=== PATIENT | female | born 1995 | race Caucasian/White ===

== ENCOUNTER 2019-02-26 12:46 | Emergency (ER) | payer BC ==
[~2019-02-26] VITALS: Ht 160 cm; Wt 61.2 kg
[2019-02-26 12:52] VITALS: BP 116/70
--- NOTE | 2019-02-26 13:52 | PHYS DOC ---
Past Medical History Past Medical History: Other Additional Past Medical Histor: CONCUSSION X 2 (NICK SOL APRN) Past Surgical History: Other Additional Past Surgical Histo: ORAL (NICK SOL APRN) Alcohol Use: Occasionally Drug Use: None (NICK SOL APRN) Adult General Chief Complaint Chief Complaint: HEADACHE HPI HPI Patient is a 23 year old female who presents to the emergency department with complaints of headache in both sides of her forehead and difficulty concentrating after suffering a fall while dancing 2 days ago. Patient denies any loss of consciousness, nausea, vomiting, neck pain, back pain, vision changes, photosensitivity, or ringing in the ears since the event happened. She states that she feels like she did when she was previously diagnosed with a concussion. Patient states that she landed onto her right hip, she denies ever hitting her head on the ground. She denies any pain of her right hip or decreased range of motion. Currently, her discomfort is a 4 out of 10 on the pain scale, there are no alleviating or exacerbating factors. She denies any nasal congestion, sinus pressure, sneezing, or itching/watering eyes. (NICK SOL APRN) Review of Systems Review of Systems Constitutional: Denies fever or chills [] Eyes: Denies change in visual acuity, redness, or eye pain [] HENT: Denies nasal congestion or sore throat [] Respiratory: Denies cough or shortness of breath [] Cardiovascular: No additional information not addressed in HPI [] GI: Denies abdominal pain, nausea, vomiting, or diarrhea [] : Denies dysuria or hematuria [] Musculoskeletal: Denies back pain or joint pain [] Integument: Denies rash or skin lesions [] Neurologic: Denies headache, focal weakness or sensory changes; reports difficulty concentrating [] Complete systems were reviewed and found to be within normal limits, except as documented in this note. (NICK SOL APRN) Allergies Allergies Allergies Coded Allergies Type Severity Reaction Last Updated Verified No Known Drug Allergies 02/26/19 No (MARCELINA CLARK DO) Physical Exam Physical Exam Constitutional: Well developed, well nourished, no acute distress, non-toxic appearance. [] HENT: Normocephalic, atraumatic, bilateral external ears normal, bilateral TMs normal, oropharynx moist, no oral exudates, nose normal. [] Eyes: PERRLA, EOMI, conjunctiva normal, no discharge. [] Neck: Normal range of motion, no tenderness, supple, no stridor. [] Cardiovascular:Heart rate regular rhythm, no murmur [] Lungs & Thorax: Bilateral breath sounds clear to auscultation [] Skin: Warm, dry, no erythema, no rash. [] Back: No tenderness Extremities: No tenderness, no cyanosis, no clubbing, ROM intact, no edema. [] Neurologic: Alert and oriented X 3, normal motor function, normal sensory function, no focal deficits noted. [] Psychologic: Affect normal, judgement normal, mood normal. [] (NICK SLO APRN) Current Patient Data Vital Signs Vital Signs Date Time Temp Pulse Resp B/P (MAP) Pulse Ox O2 Delivery O2 Flow Rate FiO2 02/26/19 12:52 98.2 68 20 116/70 (85) 98 Room Air 98.2 (MARCELINA CLARK DO) EKG EKG [] (NICK SOL APRN) Radiology/Procedures Radiology/Procedures [] (NICK SOL APRN) Course & Med Decision Making Course & Med Decision Making Pertinent Labs and Imaging studies reviewed. (See chart for details) dx: Concussion symptoms No neurological deficits on physical exam Patient is instructed to go home and rest, avoid exposure to screens, and follow-up with primary care doctor if symptoms persist. Advised patient that no imaging is warranted at this time. Patient verbalized an understanding of home care, medications, follow-up, and return to ED instructions and was in agreement with the plan of care. [] (NICK SOL APRN) Dragon Disclaimer Dragon Disclaimer This electronic medical record was generated, in whole or in part, using a voice recognition dictation system. (NICK SOL APRN) Departure Departure Impression: Primary Impression: Concussion Disposition: 01 HOME, SELF-CARE Condition: STABLE Referrals: UNKNOWN PCP NAME (PCP) Patient Instructions: Concussion and Brain Injury, [id number] Additional Instructions: Home to rest, avoid screen exposure. Tylenol or ibuprofen as needed for pain. Follow up with your doctor if symptoms persist. Return to the ER if symptoms worsen. Attending Signature Attending Signature I have reviewed the PA/LAB SUPPORT TECHNICIAN's note and plan of care. I was available for consultation as needed during the patient's visit in the emergency department. I agree with the clinical impression, plan, and disposition. (MARCELINA CLARK DO) Problem Qualifiers Primary Impression: Concussion Encounter type: initial encounter Loss of consciousness presence/duration: without LOC Qualified Codes: S06.0X0A - Concussion without loss of consciousness, initial encounter NICK SOL APRN Feb 26, 2019 13:52 MARCELINA CLARK DO Mar 04, 2019 19:46
== END 2019-02-26 14:06 | disposition home or self-care (01) ==
LOC: ER 12:46
DX: S06.0X0A Concussion without loss of consciousness, initial encounter (principal); W18.39XA Other fall on same level, initial encounter; Y93.41 Activity, dancing; Y92.89 Other specified places as the place of occurrence of the external cause; Y99.8 Other external cause status
CPT/HCPCS: 99281; 99284